=== PATIENT | male | born 2000 | race Caucasian/White ===

== ENCOUNTER 2023-08-08 02:10 | Emergency (ER) | payer MEDICAID ==
[~2023-08-08] VITALS: Ht 182.9 cm; Wt 75.7 kg
[2023-08-08 02:15] VITALS: BP_SYST 114; PULSE 85; RESP 20; TEMP 98.5; O2SAT 97
[2023-08-08] MEDS ORDERED: VANCOMYCIN HCL 1000 MG/VIAL IV ONE (03:01)
[2023-08-08] MEDS: KETOROLAC TROMETHAMINE 30 MG VIAL IVP ONE (03:08)
[2023-08-08] MEDS: VANCOMYCIN HCL 1,000 MG in NS 250 ML IV ONE (03:09)
[2023-08-08] MEDS ORDERED: SULF1TAB48 PO (04:07)
[2023-08-08 05:23] VITALS: BP_SYST 110; PULSE 75; RESP 18; TEMP 98.6; O2SAT 97
== END 2023-08-08 05:14 | disposition home or self-care (01) ==
LOC: SED 02:10
DX: L03.317 Cellulitis of buttock (principal); Z79.899 Other long term (current) drug therapy
CPT/HCPCS: 99284; 96365; 96366; 96375; 87040; 36415; J1885; J3370